=== PATIENT | female | born 1960 | race Caucasian/White ===

== ENCOUNTER 2022-08-08 12:26 | Outpatient (CLI) | payer OTHER ==
--- NOTE | 2022-08-08 15:32 | Ultrasound Report ---
PROCEDURE: Ext Limited Non Vascular INDICATIONS: LEFT LOWER LEG HEMATOMA TECHNIQUE: Real-time scanning was performed of the left ankle region, with image documentation. COMPARISON: None. FINDINGS: Imaging findings shows a 1.6 x 1.3 x 0.5 cm ill-defined mixed echogenic structure in the s ubcutaneous tissues of the patient's left ankle anterolaterally. Differential includes hematoma/serom a versus abscess and clinical correlation is recommended. IMPRESSION: Ill-defined 1.3 x 1.6 x 0.5 cm mixed echogenic probable fluid collection present in the s ubcutaneous tissues of the anterolateral left ankle. Differential includes hematoma versus seroma doroteo jd abscess and clinical correlation is recommended.: Reviewed by: Jayden Lutz MD on 08/08/2022 3:31 PM PST Approved by: Jayden Lutz MD on 08/08/2022 3:31 PM PST Station ID: [id number]
== END 2022-08-08 12:27 | disposition home or self-care (01) ==
LOC: DI 12:26
PROVIDERS: ATTEND Physician Assistant
DX: S80.12XA Contusion of left lower leg, initial encounter (principal); R93.6 Abnormal findings on diagnostic imaging of limbs; R93.89 Abnormal findings on diagnostic imaging of other specified body structures